=== PATIENT | male | born 1945 | race Caucasian/White ===

== ENCOUNTER 2017-12-03 09:59 | Outpatient (CLI) | payer OTHER ==
[~2017-12-03 09:59] MED LIST: AMBIEN10 MG PO; AMIODARONE PO; AMOX1TAB12 PO; CELEBREX100 MG PO; CIPRO750 MG PO; COZAAR100 MG PO; CYMBALTA30 MG PO; Colace 100MG PO; DIAZEPAM10 MG PO; DOCUSATE SODIU100 MG PO; FOLIC ACID0.4 MG PO; GABAPENTIN800 MG PO; HUMULIN 70100 UNIT/2 SUBCUTANEO; KOMBIGLYZE XR1 EAC2 PO; LEVAQUIN500 MG PO; MEDROL4 MG PO; MEDROLPACK PO; NEURONTIN PO; NEUROTIN PO; ORPH100T PO; PERCOCET 5-3251 EACH PO; PERCOCET 5/321 UDTAB PO; PERCOCET 5/3251 TAB PO; PRIMIDONE PO; SINVASTATIN PO; SKELAXIN800 MG PO; SOMA250 MG; TAMS0.4C; TAMS0.4C PO; TRAMADOL HCL50 MG PO; XARELTO20 MG PO; ZANTAC300 MG PO; [UNRECOGNIZED DRUG - OTHER]
== END 2017-12-03 15:08 | disposition home or self-care (01) ==
LOC: RAD 09:59
DX: M51.36 Other intervertebral disc degeneration, lumbar region (principal); Z98.1 Arthrodesis status

== ENCOUNTER 2018-01-15 08:33 | Outpatient (CLI) | payer OTHER | END 2018-01-15 08:43 | disposition home or self-care (01) | LOC: LAB 08:33 | DX: H25.011 Cortical age-related cataract, right eye (principal); Z98.41 Cataract extraction status, right eye ==

== ENCOUNTER 2018-01-15 08:42 | Outpatient (CLI) | payer OTHER | END 2018-01-15 08:50 | disposition home or self-care (01) | LOC: LAB 08:42 → RAD 08:42 | DX: H25.011 Cortical age-related cataract, right eye (principal); Z98.41 Cataract extraction status, right eye ==

== ENCOUNTER 2018-04-10 08:40 | Outpatient (CLI) | payer OTHER | END 2018-04-10 17:00 | disposition home or self-care (01) | LOC: RAD 08:40 | DX: M51.36 Other intervertebral disc degeneration, lumbar region (principal); Z98.1 Arthrodesis status ==

== ENCOUNTER 2018-05-01 19:36 | Emergency (ER) | payer OTHER ==
[~2018-05-01] VITALS: Ht 170.2 cm; Wt 95.3 kg
[2018-05-01] MEDS ORDERED: ASPIR 8181 MG (20:28)
== END 2018-05-01 23:33 | disposition home or self-care (01) ==
LOC: ER 19:36
DX: B34.9 Viral infection, unspecified (principal); N43.2 Other hydrocele; N50.811 Right testicular pain; N39.0 Urinary tract infection, site not specified; J11.1 Influenza due to unidentified influenza virus with other respiratory manifestations

== ENCOUNTER 2018-09-15 11:42 | Outpatient (CLI) | payer OTHER ==
[~2018-09-15 11:42] MED LIST changes: +ASPIR 8181 MG
== END 2018-09-15 11:45 | disposition home or self-care (01) ==
LOC: LAB 11:42
DX: E11.21 Type 2 diabetes mellitus with diabetic nephropathy (principal); N18.3 Chronic kidney disease, stage 3 (moderate); I10 Essential (primary) hypertension; R80.8 Other proteinuria

== ENCOUNTER 2018-11-20 10:49 | Outpatient (CLI) | payer OTHER | END 2018-11-20 10:52 | disposition home or self-care (01) | LOC: LAB 10:49 | DX: D49.6 Neoplasm of unspecified behavior of brain (principal); Z51.81 Encounter for therapeutic drug level monitoring ==

== ENCOUNTER 2018-12-16 08:43 | Outpatient (CLI) | payer OTHER | END 2018-12-16 08:53 | disposition home or self-care (01) | LOC: MRI 08:43 | DX: R41.82 Altered mental status, unspecified (principal); R41.3 Other amnesia; I65.1 Occlusion and stenosis of basilar artery; I65.09 Occlusion and stenosis of unspecified vertebral artery | CPT/HCPCS: 70544; 70551 ==

== ENCOUNTER 2018-12-20 13:06 | Emergency (ER) | payer OTHER ==
[~2018-12-20] VITALS: Ht 170.2 cm; Wt 89.8 kg
[2018-12-20] MEDS ORDERED: LANTUS SOL100 UNIT/1 (13:28)
[2018-12-20] MEDS ORDERED: JANUMET 50-1,01 EACH (13:30)
[2018-12-20] MEDS ORDERED: MYSOLINE50 MG (13:31)
== END 2018-12-20 17:14 | disposition home or self-care (01) ==
LOC: ER 13:06
DX: K52.29 Other allergic and dietetic gastroenteritis and colitis (principal); K31.9 Disease of stomach and duodenum, unspecified; E11.43 Type 2 diabetes mellitus with diabetic autonomic (poly)neuropathy; K31.84 Gastroparesis; T78.49XA Other allergy, initial encounter; X58.XXXA Exposure to other specified factors, initial encounter

== ENCOUNTER 2019-01-14 10:56 | Outpatient (CLI) | payer OTHER ==
[~2019-01-14 10:56] MED LIST changes: +JANUMET 50-1,01 EACH; +LANTUS SOL100 UNIT/1; +MYSOLINE50 MG
== END 2019-01-14 15:04 | disposition home or self-care (01) ==
LOC: LAB 10:56
DX: N18.2 Chronic kidney disease, stage 2 (mild) (principal); I10 Essential (primary) hypertension

== ENCOUNTER 2019-03-31 09:46 | Outpatient (CLI) | payer OTHER | END 2019-03-31 10:03 | disposition home or self-care (01) | LOC: MRI 09:46 | DX: M54.30 Sciatica, unspecified side (principal) | CPT/HCPCS: 72148 ==

== ENCOUNTER 2019-05-05 10:23 | Outpatient (CLI) | payer OTHER | END 2019-05-05 10:31 | disposition home or self-care (01) | LOC: LAB 10:23 | DX: E11.65 Type 2 diabetes mellitus with hyperglycemia (principal); E78.00 Pure hypercholesterolemia, unspecified; I10 Essential (primary) hypertension; E11.21 Type 2 diabetes mellitus with diabetic nephropathy ==

== ENCOUNTER 2020-03-16 11:19 | Outpatient (CLI) | payer OTHER | END 2020-03-16 11:21 | disposition home or self-care (01) | LOC: SONOGRAMA 11:19 | PROVIDERS: ATTEND Pathology Anatomic Pathology & Clinical Pathology | DX: N63.20 Unspecified lump in the left breast, unspecified quadrant (principal); R92.0 Mammographic microcalcification found on diagnostic imaging of breast ==

== ENCOUNTER 2023-02-19 11:42 | Outpatient (CLI) | payer OTHER ==
[~2023-02-19 11:42] MED LIST changes: +ACETAMINOPHEN-1 EAC2 PO; +AMOX-CLAV 875-1 EACH PO; +COLACE100 MG PO; +NEURONTIN800 MG PO; +ZOFRAN8 MG PO
== END 2023-02-19 11:43 | disposition home or self-care (01) ==
LOC: RAD 11:42
PROVIDERS: ATTEND Surgery
DX: L08.89 Other specified local infections of the skin and subcutaneous tissue (principal)